=== PATIENT | male | born 1955 ===

== ENCOUNTER 2016-10-20 13:44 | Observation (INO) | payer OTHER ==
--- NOTE | 2016-10-20 15:36 | CT REPORT ---
HISTORY: Pain COMPARISON: None. TECHNIQUE: This examination was performed using automated exposure control, adjustment of mA or kV according to patient size, and/or use of iterative reconstruction technique. Axial noncontrast images of the sinus es obtained with multiplanar reformat images. FINDINGS: The frontal, ethmoids, sphenoid, and maxillary sinuses are clear, except for very minimal mucosal thi ckening in the inferior left sphenoid sinuses. No air-fluid levels. The ostia and infundibular region s are patent. There is moderate septal bowing pointing to the left, along with a small septal spur. N o contact point. The nasal cavity is otherwise normal. No bony sclerosis or thickening. The mastoid air cells are clear. Inferior aspect of the brain, soft tissues of the orbits and face are grossly normal. IMPRESSION: Very minimal mucosal thickening in the left sphenoid sinuses. No other sinus opacification, or air-fl uid levels. Final Electronic Signature: This report was electronically signed by Greg Ingram MD on 10/20/2016 3 :34 PM. jenny /
--- NOTE | 2016-10-20 15:41 | CT REPORT ---
HISTORY: Headache. COMPARISON: None available. TECHNIQUE: Axial non-contrast images obtained from skull vertex through foramen magnum. Dose reduction technique was utilized. FINDINGS: No intracranial mass. No intracranial hemorrhage. No extra-axial fluid collection. Normal ventricular size. No midline shift. No definite evidence for acute or evolving stroke. No calvarial fracture. Visualized paranasal sinuses and mastoid air cells are clear. IMPRESSION: Unremarkable CT head. No evidence for mass, stroke or hemorrhage. Final Electronic Signature: This report was electronically signed by Anoop Huber MD, FACR on 3:39 PM. venu /
[2016-10-20 15:43] LABS: ALBUMIN 3.7 g/dL (3.5-5.0); ALKALINE PHOSPHATASE 52 U/L (38-126); ALT 79 U/L (21-72); AST 79 U/L (17-59); BILIRUBIN, TOTAL 1.6 mg/dL (0.2-1.3); BLOOD UREA NITROGEN 18 mg/dL (9-20); CALCIUM 8.7 mg/dL (8.4-10.2); CHLORIDE 95 mmol/L (98-107); CREATININE 0.7 mg/dL (0.7-1.3); EST GLOMERULAR FILTRATION RATE > 60 mL/min; GLUCOSE 112 mg/dL (70-100); POTASSIUM 4.1 mmol/L (3.5-5.1); SODIUM 127 mmol/L (137-145); TOTAL PROTEIN 7.3 g/dL (6.3-8.2)
--- NOTE | 2016-10-20 15:43 | RADIOLOGY REPORT ---
HISTORY: Cough and congestion. COMPARISON: None available. FINDINGS: 2 views of the chest obtained. Normal heart size. Mild atherosclerotic changes aorta. Grossly normal central pulmonary vessels. Patchy somewhat poorly defined left lower lobe infiltrate. Otherwise clear lungs. No pleural effusion. No pneumothorax. No focal bony abnormalities identified. IMPRESSION: Probable early or developing left lower lobe infiltrate compatible with the presence of pneumonia. In the appropriate clinical situation consider aspiration. Final Electronic Signature: This report was electronically signed by Anoop Huber MD, FACR on 3:41 PM. venu /
[2016-10-20 16:05] LABS: HEMATOCRIT 43.7 % (42.0-54.0); HEMOGLOBIN 15.6 g/dL (14.0-18.0); MEAN CELL VOLUME 87.9 fL (80.0-100.0); MEAN CORPUS. HGB CONCENTRATION 35.8 g/dL (32.0-36.0); MEAN CORPUSCULAR HEMOGLOBIN 31.5 pg (29.0-35.0); MEAN PLATELET VOLUME 8.8 fL (7.4-10.4); PLATELET COUNT 202 X 10^3uL (130-440); RED BLOOD COUNT 4.96 X 10^6uL (4.20-6.10); RED CELL DISTRIBUTION WIDTH 11.8 % (11.5-14.5); WHITE BLOOD COUNT 13.5 X 10^3uL (3.9-10.7)
[2016-10-20 16:07] LABS: BAND% (Manual) 18 % (0.0-1.0); LYMPHOCYTE % (Manual) 11 % (20.0-40.0); NEUTROPHIL % (Manual) 65 % (54.0-75.0)
[2016-10-20 16:08] LABS: METAMYELOCYTE % (Manual) 1 % (0); MONOCYTE % (Manual) 5 % (2.0-10.0); PLATELET ESTIMATE ADEQUATE; PROMYELOCYTE % (Manual) 1 % (0)
[2016-10-20] MEDS ORDERED: cefTRIAXone SODIUM 1,000 MG/10 ML VIAL ONE (16:35)
[2016-10-20] MEDS ORDERED: AZITHROMYCIN 250 MG TABLET PO ONE ×2 (16:35→16:40)
[2016-10-20] MEDS ORDERED: HOME MEDICATION LIST NEEDED 1 EA EACH MC ONE (16:37)
[2016-10-20] MEDS ORDERED: ZOLPIDEM TARTRATE 5 MG TABLET PO PRN (16:37)
[2016-10-20] MEDS ORDERED: ACETAMINOPHEN 325 MG TABLET PO PRN (16:37)
[2016-10-20] MEDS ORDERED: POLYETHYLENE GLYCOL 3350 17 GM POWD.PACK PO PRN (16:37)
[2016-10-20] MEDS ORDERED: NORMAL SALINE 100 ML IV ONE (16:50)
[2016-10-20] MEDS ORDERED: cefTRIAXone SODIUM 1,000 MG/10 ML VIAL IV SCH (17:00)
[2016-10-20] MEDS ORDERED: HOME MEDICATION LIST NEEDED 1 EA EACH MISC ONE (18:00)
--- NOTE | 2016-10-20 18:09 | ER PHYSICIAN DOCUMENTATION ---
Physician Documentation [facility] Name:Joseph Barajas Age:61 yrs Sex:Male :1955 Arrival Date:10/20/2016 Time:13:44 Bed2 Private MD: Beck Isaacs Disposition: 10/20 18:30 Chart complete. tl1 Disposition: 10/20/16 17:07 Admit ordered for Cori Garland. Preliminary diagnosis is Pneumonia Bacterial. - Bed requested for Medical/Surgical. - Condition is Good. - Problem is new. - Symptoms have improved. 23 HR OBS Yes HPI: 13:50 This 61 yrs old Unknown Male presents to ER with complaints of Sinus Pain, Sinus tl1 Congestion. 14:13 He is a rambling, non linear historian. He was well until about 2 weeks ago when he tl1 noted general malaise and fatigue. 4 days ago he noted sinus congestion and worsening malaise and myalgias. He saw Dr Fuentes 3 days ago at [facility] where a flu swab was negative, and he was thought to have a bacterial sinusitis, and treated with Amox, 875 BID. In addition, he has had a mildly productive cough with occasional small hemoptysis. Since then he is no better and has a worsening h/a that is bifrontal and over the vertex. He saw Dr Garland in clinic today and had a temp to 102 degrees, and seemed perhaps a little confused. He says his thinking is slow and foggy. Historical: - Allergies: No known drug Allergies; - Home Meds: 1. Amoxicillin Oral 2. gabapentin 300 mg oral cap 2 caps at bedtime 3. [place] 10-325 mg oral tab 4. prednisone 5 mg oral tab - PMHx: CHRONIC PAIN; polymyalgia rheumatica; - PSHx: None; - Tetanus: unknown. - Immunization history: Pneumococcal vaccine is up to date. - Ebola Screening: : Patient negative for fever greater than or equal to 101.5 degrees Fahrenheit, and additional compatible Ebola Virus Disease symptoms. Patient denies exposure to infectious person. Patient denies travel to an Ebola-affected area in the 21 days before illness onset. No symptoms or risks identified at this time. . - Social history: Smoking status: unknown if patient ever smoked tobacco. ROS: 16:00 Respiratory: Positive for cough, hemoptysis, shortness of breath. tl1 16:00 All other systems are negative. Exam: 16:00 Constitutional: This is a well developed, well nourished patient who is awake, alert, tl1 and in no acute distress. Head/Face: Normocephalic, atraumatic. Eyes: Pupils equal round and reactive to light, extra-ocular motions intact. Lids and lashes normal. Conjunctiva and sclera are non-icteric and not injected. Cornea within normal limits. Periorbital areas with no swelling, redness, or edema. ENT: Nares patent. No nasal discharge, no septal abnormalities noted. Tympanic membranes are normal and external auditory canals are clear. Oropharynx with no redness, swelling, or masses, exudates, or evidence of obstruction, uvula midline. Mucous membranes moist. 16:00 Cardiovascular: Regular rate and rhythm with a normal S1 and S2. No gallops, murmurs, tl1 or rubs. Normal PMI, no JVD. No pulse deficits. Abdomen/GI: Soft, non-tender, with normal bowel sounds. No distension or tympany. No guarding or rebound. No evidence of tenderness throughout. Skin: Warm, dry with normal turgor. Normal color with no rashes, no lesions, and no evidence of cellulitis. 16:00 Neuro: Awake and alert, GCS 15, oriented to person, place, time, and situation. Cranial nerves II-XII grossly intact. Motor strength 5/5 in all extremities. Sensory grossly intact. Cerebellar exam normal. Normal gait. 16:00 Respiratory: Respirations: normal, Breath sounds: are normal, no decreased breath sounds, no rales, rhonchi, no stridor, no wheezing. Vital Signs: 14:22 BP 155 / 84; Pulse 84; Resp 20; Temp 100.6; Pulse Ox 90% on R/A; Pain 4/10; rs 14:29 Pulse Ox 97% ; rs 14:30 BP 147 / 86 (auto/); rs 14:44 Pulse Ox 97% ; rs 14:45 BP 155 / 89 (auto/); rs 14:54 Pulse Ox 96% ; rs 15:00 BP 158 / 90 (auto/); rs 15:30 BP 149 / 82 (auto/); rs 15:34 Pulse Ox 94% ; rs 16:00 BP 154 / 88 (auto/); rs 16:04 Pulse Ox 95% ; rs MDM: 13:50 Patient medically screened. tl1 17:00 Differential Diagnosis: Bronchitis Influenza Upper Respiratory Infection Sinusitis tl1 Viral Syndrome Pneumonia. Data reviewed: vital signs, nurses notes, old medical records, lab test result(s), radiologic studies, and as a result, I will admit patient. Test interpretation: by ED physician or midlevel provider: plain radiologic studies. Counseling: I had a detailed discussion with the patient and/or guardian regarding: the historical points, exam findings, and any diagnostic results supporting the discharge/admit diagnosis, lab results, radiology results, the need for further work-up and treatment in the hospital. Response to treatment: the patient's symptoms have mildly improved after treatment, and as a result, I will admit patient. Physician consultation: Cori Garland MD was called at 16:30, was contacted at 16:30, regarding admission, to the floor, patient's condition, and will see patient in inpatient room, shortly. 10/20 16:06 Order name: CBC WITHOUT A DIFFERENTIAL [facility] 10/20 16:31 Interpretation: WHITE BLOOD COUNT 13.5; HEMOGLOBIN 15.6; HEMATOCRIT 43.7; PLATELET tl1 COUNT 202. 10/20 16:07 Order name: COMPREHENSIVE METABOLIC PANEL [facility] 10/20 16:31 Interpretation: SODIUM 127; POTASSIUM 4.1; CHLORIDE 95; CARBON DIOXIDE 24; GLUCOSE 112; tl1 BLOOD UREA NITROGEN 18; CREATININE 0.7; ALT 79; AST 79; BILIRUBIN, TOTAL 1.6. 10/20 16:07 Order name: MAGNESIUM [facility] 10/20 16:32 Interpretation: Normal: MAGNESIUM 2.0. tl1 10/20 16:09 Order name: MANUAL DIFFERENTIAL [facility] 10/20 16:32 Interpretation: NEUTROPHIL % (Manual) 65; BAND% (Manual) 18; LYMPHOCYTE % (Manual) 11; tl1 MONOCYTE % (Manual) 5; METAMYELOCYTE % (Manual) 1; PROMYELOCYTE % (Manual) 1. 10/20 15:20 Order name: CATSCAN;MAXILLOFAC W/O [id number] EDNM 10/20 15:20 Order name: CATSCANMAXILLOFAC W/O [id number]; Complete Time: 16:05 EDNM 10/20 15:22 Order name: CAT SCAN HEAD W/O CON [id number]; Complete Time: 16:05 EDMS 10/20 15:35 Order name: CXR 2V [id number]; Complete Time: 16:05 EDMS 10/20 15:39 Order name: CATSCAN;MAXILLOFAC W/O [id number]; Complete Time: 16:05 EDMS 10/20 15:42 Order name: CAT SCAN; HEAD W/O CON [id number]; Complete Time: 16:05 EDMS 10/20 15:44 Order name: CXR 2V [id number]; Complete Time: 16:05 EDMS 10/20 14:02 Order name: Pulse Ox Continuous; Complete Time: 16:12 tl1 10/20 16:15 Order name: Continuous Cardiac Monitoring tl1 10/20 16:15 Order name: Hemocult Stool tl1 10/20 16:15 Order name: I & O tl1 10/20 16:15 Order name: NPO tl1 10/20 16:15 Order name: Oxygen tl1 Dispensed Medications: Completed: NS 0.9% 1000 ml IV at bolus once Completed: 2 grams of (cefTRIAXone 1 grams, NS 0.9% 100 ml) IVPB once over 30 mins 15:40 Drug: NS 0.9% 1000 ml; Volume: 1000 ml; Route: IV; Rate: bolus; Site: right hand; rs Delivery: [place] [facility]; 16:30 Follow up: IV Status: Completed infusion; IV Intake: 1000ml rs 16:30 Dru grams of (cefTRIAXone 1 grams, NS 0.9% 100 ml); Volume: 100 ml; Route: IVPB; rs Rate: 200 ml/hr; Infused Over: 30 mins; Site: right hand; Delivery: [place] [facility]; 17:29 Follow up: IV Intake: 100ml rs 16:32 Drug: Zithromax 500 mg; Route: PO; rs 17:28 Follow up: Response: No adverse reaction rs 16:48 CANCELLED (Physician Discretion): cefTRIAXone 1 grams IM once rs 16:48 CANCELLED (Physician Discretion): cefTRIAXone 2 grams IM once rs 16:49 CANCELLED (Physician Discretion): Ceftazidime 2 grams IVPB once rs 16:56 Drug: Acetaminophen 975 mg; Route: PO; lpr Signatures: Sheri Mar RN RN rs Marlene Hilario RN RN lpr Leigh, Tom, MD MD tl1
--- NOTE | 2016-10-20 18:09 | ER NURSING DOCUMENTATION ---
Nurse's Notes [facility] Name:Joseph Barajas Age:61 yrs Sex:Male :1955 Arrival Date:10/20/2016 Time:13:44 Bed2 Private MD: Diagnosis:Pneumonia Bacterial Presentation: 10/20 13:59 Presenting complaint: Patient states: cough, fever, myalgias. Flu test done at [facility] 3 days ago was neg. Transition of care: Home. Notified ED Physician of patient's arrival and CC Dr. Dunbar notified. 13:59 Acuity: JOHN 3 rs 13:59 Method Of Arrival: Private Vehicle rs 17:17 Acuity: JOHN 2 lpr Triage Assessment: 14:09 General: Appears comfortable, well developed, well nourished, well groomed, Behavior is rs cooperative, pleasant. Pain: Complains of pain in [place] and myalgias. Neuro: No deficits noted. Level of Consciousness is awake, alert, Oriented to person, place, time, event. Cardiovascular: No deficits noted. Capillary refill < 3 seconds Pulses are 3+ in right radial artery. Respiratory: No deficits noted. Respiratory effort is even, unlabored, Respiratory pattern is regular, symmetrical, Breath sounds are clear bilaterally. GI: Abdomen is flat, non- distended Bowel sounds present X 4 quads. Derm: Skin is pink, warm & dry. Historical: - Allergies: No known drug Allergies; - Home Meds: 1. Amoxicillin Oral 2. gabapentin 300 mg oral cap 2 caps at bedtime 3. [place] 10-325 mg oral tab 4. prednisone 5 mg oral tab - PMHx: CHRONIC PAIN; polymyalgia rheumatica; - PSHx: None; - Tetanus: unknown. - Immunization history: Pneumococcal vaccine is up to date. - Ebola Screening: : Patient negative for fever greater than or equal to 101.5 degrees Fahrenheit, and additional compatible Ebola Virus Disease symptoms. Patient denies exposure to infectious person. Patient denies travel to an Ebola-affected area in the 21 days before illness onset. No symptoms or risks identified at this time. . - Social history: Smoking status: unknown if patient ever smoked tobacco. Screenin:31 Infectious Disease Risk None. Abuse screen: Denies threats or abuse. Nutritional rs screening: No deficits noted. Assessment: 14:23 See Triage Assessment done by same RN. rs 14:27 Reassessment: Pt states he did not want to be sent to the ER, that he just wanted a rs change in abx, He denies that he is confused at all, and does not want a CT done. notified. . Vital Signs: 14:22 BP 155 / 84; Pulse 84; Resp 20; Temp 100.6; Pulse Ox 90% on R/A; Pain 4/10; rs 14:29 Pulse Ox 97% ; rs 14:30 BP 147 / 86 (auto/); rs 14:44 Pulse Ox 97% ; rs 14:45 BP 155 / 89 (auto/); rs 14:54 Pulse Ox 96% ; rs 15:00 BP 158 / 90 (auto/); rs 15:30 BP 149 / 82 (auto/); rs 15:34 Pulse Ox 94% ; rs 16:00 BP 154 / 88 (auto/); rs 16:04 Pulse Ox 95% ; rs ED Course: 13:45 Patient arrived in ED. lm3 13:50 Beck Dunbar MD is Attending Physician. tl1 13:59 Sheri Mar, RN is Primary Nurse. rs 14:09 Triage completed. rs 14:15 Arm band placed on Bed in low position Call Light in Reach HOB Elevated Side rails up rs x1. 14:20 Notified ED Physician of patient's arrival and chief complaint. Dr. Dunbar notified. rs 14:20 Pulse Ox - RN Monitoring Only. Door closed. Noise minimized. Lights dimmed. Verbal rs reassurance given. 15:[address] pm1 15:11 Inserted peripheral IV: 20 gauge in right hand and blood collected. rs 15:[address] back from [address]. pm1 17:07 Cori Garland MD is Admitting Physician. tl1 Administered Medications: Completed: NS 0.9% 1000 ml IV at bolus once Completed: 2 grams of (cefTRIAXone 1 grams, NS 0.9% 100 ml) IVPB once over 30 mins 15:40 Drug: NS 0.9% 1000 ml; Volume: 1000 ml; Route: IV; Rate: bolus; Site: right hand; rs Delivery: [place] [facility]; 16:30 Follow up: IV Status: Completed infusion; IV Intake: 1000ml rs 16:30 Dru grams of (cefTRIAXone 1 grams, NS 0.9% 100 ml); Volume: 100 ml; Route: IVPB; rs Rate: 200 ml/hr; Infused Over: 30 mins; Site: right hand; Delivery: [place] [facility]; 17:29 Follow up: IV Intake: 100ml rs 16:32 Drug: Zithromax 500 mg; Route: PO; rs 17:28 Follow up: Response: No adverse reaction rs 16:48 CANCELLED (Physician Discretion): cefTRIAXone 1 grams IM once rs 16:48 CANCELLED (Physician Discretion): cefTRIAXone 2 grams IM once rs 16:49 CANCELLED (Physician Discretion): Ceftazidime 2 grams IVPB once rs 16:56 Drug: Acetaminophen 975 mg; Route: PO; lpr Intake: 16:30 IV: 1000ml; Total: 1000ml. rs 17:29 IV: 100ml; Total: 1100ml. rs Outcome: 17:07 Decision to Admit by Provider. tl1 17:45 Admitted to Med/surg accompanied by nurse, via wheelchair. rs 17:45 Condition: improved 17:45 Report given to Domi HAIDER 17:45 Instructed on need to admit 18:07 Patient left the ED. rs Signatures: Sheri Mar RN RN rs Marlene Hilario RN RN lpr Koko Walker pm1 Beck Dunbar MD MD tl1 Krista Lancaster 3
[2016-10-20] MEDS ORDERED: ONDANSETRON HCL 4 MG/2 ML VIAL IV PRN (18:30)
[2016-10-20] MEDS ORDERED: HYDROcodone/APAP 10/325 MG 1 TAB TABLET PO PRN (18:31)
[2016-10-20] MEDS ORDERED: ONDANSETRON ODT 4 MG TAB.RAPDIS PO ONE (18:40)
[2016-10-20] MEDS ORDERED: ONDANSETRON ODT 4 MG TAB.RAPDIS ONE (18:50)
[2016-10-20 19:01] LABS: INFLUENZA A/B INF A & B NEGATIVE
[2016-10-20] MEDS: FAMOTIDINE IN SALINE, ISO-OSM 20 MG/50 ML PIGGYBACK IV SCH (20:59)
[2016-10-20] MEDS: predniSONE 10 MG TABLET PO SCH (20:59)
[2016-10-21] MEDS: NORMAL SALINE 1,000 ML IV SCH ×3 (00:25→18:19)
--- NOTE | 2016-10-21 06:35 | HISTORY & PHYSICAL ---
DATE OF ADMISSION: 10/20/16 HISTORY OF PRESENT ILLNESS: The patient presented to our clinic today, 3 days after seeing his PCP for some fever and URI symptoms. It was felt that he probably had a sinus infection as the reason for his feeling poorly with fever and headache. The patient states he has not done well at all, if anything he is much worse. He can barely eat any food due to nausea and intermittent vomiting when he tries. He relates a rather intense headache which is so severe when he coughs that he sees flashing lights. He is not coughing excessively but does note some brown sputum when he does cough. He does not relate any abdominal pain. He really does not have significant sinus pain or congestion, and no purulent drainage from the [employer] region. He relates having intermittent fever, chills and shakes. Also of note, his PCP has been trying to taper him off of prednisone for his polymyalgia rheumatic, but did not seem successful with that so he is back up to 20 mg of prednisone p.o. daily. He is also quite distraught that he has not been able to sleep for 6 nights by his recollection. PAST MEDICAL HISTORY 1. The patient has a history of chronic pain involving his neck, back and some total body pain that is not well characterized, presumed PMR. 2. He has anxiety. 3. History of ulcerative colitis. ROUTINE MEDICATIONS: Include [place] 10/325 which he takes 1 p.o. q.6h p.r.n. Prednisone 20 mg p.o. daily. DRUG ALLERGIES: None. SOCIAL HISTORY: He quit smoking in 1993. He does not drink alcohol regularly. He has a and daughter and lives here in [place]. LABORATORY DATA: From the emergency room include CBC with a white count of 13.5 with 18% bands, 11% lymphocytes and some immature forms. Chemistry is remarkable for a sodium of 127, glucose of 112, total bilirubin of 1.6, AST 79, ALT 79. IMAGING: Reports include a chest x-ray which reveals a patchy left lower lobe infiltrate consistent with pneumonia. CT of the sinuses was unremarkable as was the CT of the head. PHYSICAL EXAMINATION VITAL SIGNS: The patient is presently afebrile, although he was 101.9 in our clinic earlier today when we decided to send him to the emergency room. His blood pressure is now 131/66, pulse 85, respiratory rate 18, and 92% on room air. GENERAL: He is a fatigued and perhaps mildly confused middle-aged gentleman in no acute distress. HEENT: Exam is completely unremarkable. CHEST: Reveals cardiac regular rate and rhythm with no murmurs. There is good air movement throughout. There is a rhonchus heard in the midleft chest. There is no egophony. ABDOMEN: Nontender throughout, event the right upper quadrant is not tender. EXTREMITIES: Without rashes or edema. ASSESSMENT AND PLAN 1. Six day history of febrile illness of unclear etiology. He was screened for influenza and this was negative in our clinic when he was seen on Sunday this week. His presentation is not classic for sinusitis and really not very classic for pneumonia, but we do have the abnormal chest x-ray, the CBC suggestive of a bacterial source of infection so he will be treated for community acquired pneumonia. 2. Hyponatremia. Certainly a sense of well being is impacted by a very abnormal sodium. He is receiving IV fluids and we will treat his nausea symptomatically hoping to restore a more normal sodium by morning and see his ability to take p.o. prior to discharge. 3. Severe headache. The imaging studies and history do not explain this very well, however, his los sodium and intermittent febrile status could easily explain a headache. 4. Possible polymyalgia rheumatica. His steroid will be continued in light of his present stressed state and he can follow up with Dr. Fuentes about this aspect of his health in the near future. 5. Chronic back pain. His narcotics will remain available to him during the hospital stay. ENMA
[2016-10-21 07:36] LABS: ALBUMIN 3.2 g/dL (3.5-5.0); ALKALINE PHOSPHATASE 43 U/L (38-126); ALT 83 U/L (21-72); AST 65 U/L (17-59); BILIRUBIN, DIRECT 0.4 mg/dL (0.0-0.4); BILIRUBIN, TOTAL 1.3 mg/dL (0.2-1.3); BLOOD UREA NITROGEN 15 mg/dL (9-20); CALCIUM 8.3 mg/dL (8.4-10.2); CHLORIDE 100 mmol/L (98-107); CREATININE 0.7 mg/dL (0.7-1.3); EST GLOMERULAR FILTRATION RATE > 60 mL/min; GLUCOSE 118 mg/dL (70-100); POTASSIUM 3.9 mmol/L (3.5-5.1); SODIUM 132 mmol/L (137-145); TOTAL PROTEIN 6.5 g/dL (6.3-8.2)
[2016-10-21 07:56] LABS: HEMATOCRIT 41.6 % (42.0-54.0); HEMOGLOBIN 14.5 g/dL (14.0-18.0); MEAN CELL VOLUME 88.5 fL (80.0-100.0); MEAN CORPUS. HGB CONCENTRATION 34.9 g/dL (32.0-36.0); MEAN CORPUSCULAR HEMOGLOBIN 30.9 pg (29.0-35.0); MEAN PLATELET VOLUME 8.5 fL (7.4-10.4); PLATELET COUNT 184 X 10^3uL (130-440); RED CELL DISTRIBUTION WIDTH 11.8 % (11.5-14.5)
[2016-10-21 07:57] LABS: BAND% (Manual) 20 % (0.0-1.0); EOSINOPHIL % (Manual) 1 % (0.0-6.0); LYMPHOCYTE % (Manual) 16 % (20.0-40.0); METAMYELOCYTE % (Manual) 2 % (0); MONOCYTE % (Manual) 12 % (2.0-10.0); NEUTROPHIL % (Manual) 49 % (54.0-75.0)
[2016-10-21 07:58] LABS: PLATELET ESTIMATE ADEQUATE
[2016-10-21] MEDS: FAMOTIDINE IN SALINE, ISO-OSM 20 MG/50 ML PIGGYBACK IV SCH ×2 (08:23→21:06)
[2016-10-21] MEDS: predniSONE 10 MG TABLET PO SCH ×2 (08:23→21:30)
--- NOTE | 2016-10-21 11:58 | PROGRESS NOTE: IM SOAP ---
IM: PN Subjective Cardiovascular: no chest pain Respiratory: cough, no wheeze Gastrointestinal: no nausea Neurological: headache (improving) IM: PN Objective Exam - I&O/Vital Signs I&O: Intake & Output 10/20/16 10/21/16 10/21/16 21:59 05:59 13:59 Intake Total 610 2642 Output Total 0 980 Balance 610 1662 Weight 105.914 kg Intake: IV 150 1642 Right Hand 150 Right Forearm 1642 Oral 460 1000 Output: Urine 0 980 Other: Urine Appearance Clear Clear Urine Color Dark Marilyn Dark Marilyn Stool Size Moderate Stool Characteristics Soft Voiding Method Toilet Toilet # Voids 0 5 # Bowel Movements 0 Vital Signs: Last Vital Signs Temp 37.2 C 10/21/16 11:00 Pulse 76 10/21/16 11:00 Resp 25 H 10/21/16 11:00 BP 137/68 10/21/16 11:00 Pulse Ox 93 10/21/16 11:00 Oxygen Flow Rate 1 Oxygen Delivery Method Nasal Cannula - Neck Neck exam: Present: full ROM - Respiratory Respiratory exam: Present: rales. Absent: rhonchi, wheezes Additional comments: L basilar - Cardiovascular Cardiovascular exam: Present: RRR. Absent: systolic murmur - GI/Abdominal GI/Abdominal exam: Present: soft. Absent: tenderness - Extremities Exam Extremities exam: Absent: edema - Lab Labs: Laboratory Last Values WBC 11.0 X 10^3uL (3.9-10.7) H 10/21/16 07:00 RBC 4.70 X 10^6uL (4.20-6.10) 10/21/16 07:00 Hgb 14.5 g/dL (14.0-18.0) 10/21/16 07:00 Hct 41.6 % (42.0-54.0) L 10/21/16 07:00 MCV 88.5 fL (80.0-100.0) 10/21/16 07:00 MCH 30.9 pg (29.0-35.0) 10/21/16 07:00 MCHC 34.9 g/dL (32.0-36.0) 10/21/16 07:00 RDW 11.8 % (11.5-14.5) 10/21/16 07:00 Plt Count 184 X 10^3uL (130-440) 10/21/16 07:00 MPV 8.5 fL (7.4-10.4) 10/21/16 07:00 Total Counted 100 10/21/16 07:00 Neutrophils % Cancelled 10/20/16 14:10 Neutrophils % (Manual) 49 % (54.0-75.0) L 10/21/16 07:00 Band Neuts % (Manual) 20 % (0.0-1.0) H 10/21/16 07:00 Lymphocytes % Cancelled 10/20/16 14:10 Lymphocytes % (Manual) 16 % (20.0-40.0) L 10/21/16 07:00 Monocytes % (Manual) 12 % (2.0-10.0) H 10/21/16 07:00 Eosinophils % Cancelled 10/20/16 14:10 Eosinophils % (Manual) 1 % (0.0-6.0) 10/21/16 07:00 Basophils % Cancelled 10/20/16 14:10 Metamyelocytes % (Man) 2 % (0) H 10/21/16 07:00 Promyelocytes % (Man) 1 % (0) H 10/20/16 14:10 Neutrophils # Cancelled 10/20/16 14:10 Lymphocytes # Cancelled 10/20/16 14:10 Monocytes Cancelled 10/20/16 14:10 Monocytes # Cancelled 10/20/16 14:10 Eosinophils # Cancelled 10/20/16 14:10 Basophils # Cancelled 10/20/16 14:10 Platelet Estimate Adequate 10/21/16 07:00 Sodium 132 mmol/L (137-145) L 10/21/16 07:00 Potassium 3.9 mmol/L (3.5-5.1) 10/21/16 07:00 Chloride 100 mmol/L (98-107) 10/21/16 07:00 Carbon Dioxide 25 mmol/L (22-30) 10/21/16 07:00 BUN 15 mg/dL (9-20) 10/21/16 07:00 Creatinine 0.7 mg/dL (0.7-1.3) 10/21/16 07:00 GFR Calculation > 60 mL/min 10/21/16 07:00 Glucose 118 mg/dL (70-100) H 10/21/16 07:00 Calcium 8.3 mg/dL (8.4-10.2) L 10/21/16 07:00 Magnesium 2.0 mg/dL (1.6-2.3) 10/20/16 14:10 Total Bilirubin 1.3 mg/dL (0.2-1.3) 10/21/16 07:00 Direct Bilirubin 0.4 mg/dL (0.0-0.4) 10/21/16 07:00 AST 65 U/L (17-59) H 10/21/16 07:00 ALT 83 U/L (21-72) H 10/21/16 07:00 Alkaline Phosphatase 43 U/L (38-126) 10/21/16 07:00 Total Protein 6.5 g/dL (6.3-8.2) 10/21/16 07:00 Albumin 3.2 g/dL (3.5-5.0) L 10/21/16 07:00 Albumin/Globulin Ratio 1.0 10/20/16 14:10 Influenza Types A,B Ag Inf a & b negative 10/20/16 14:10 Assessment and Plan - Date of Encounter Date of Encounter: 10/21/16 (1) LLL pneumonia Status: Acute Assessment and plan: Currently on RA. Marked left shift. Clinically improving. Cherelle Cannon Current Visit: Yes (2) Hyponatremia Status: Acute Assessment and plan: Improving Current Visit: Yes (3) Headache Status: Acute Assessment and plan: Improving Current Visit: Yes (4) PMR (polymyalgia rheumatica) Status: Acute Assessment and plan: Prednisone Current Visit: Yes - Time Spent With Patient Total time spent with greater than 50% in coordination of care (as documented) at patient's floor/unit and/or counseling patient: Quality Questions - VTE Prophylaxis Assessment VTE Present on Admission?: No Patient at risk for venous thromboembolism?: No VTE Risk Level: Very Low Risk Pharmaceutical VTE prophylaxis contraindication reason: not indicated Mechanical VTE prophylaxis contraindication reason: not indicated
[2016-10-21] MEDS: GUAIFENESIN ER 600 MG TABLET PO SCH (14:23)
[2016-10-21] MEDS ORDERED: NORMAL SALINE 100 ML IV ONE (15:47)
[2016-10-21] MEDS ORDERED: cefTRIAXone SODIUM 1,000 MG/10 ML VIAL IV SCH (16:00)
[2016-10-21 23:35] VITALS: PULSE 60
[2016-10-22] MEDS: GUAIFENESIN ER 600 MG TABLET PO SCH (00:53)
[2016-10-22 06:33] VITALS: BP 108/62; RESP 20; TEMP 97.2
[2016-10-22 06:59] LABS: HEMATOCRIT 38.3 % (42.0-54.0); HEMOGLOBIN 13.5 g/dL (14.0-18.0); MEAN CELL VOLUME 88.1 fL (80.0-100.0); MEAN CORPUS. HGB CONCENTRATION 35.2 g/dL (32.0-36.0); MEAN PLATELET VOLUME 8.5 fL (7.4-10.4); PLATELET COUNT 178 X 10^3uL (130-440); RED BLOOD COUNT 4.35 X 10^6uL (4.20-6.10); WHITE BLOOD COUNT 9.4 X 10^3uL (3.9-10.7)
[2016-10-22 07:13] LABS: BLOOD UREA NITROGEN 13 mg/dL (9-20); CALCIUM 8.2 mg/dL (8.4-10.2); CHLORIDE 104 mmol/L (98-107); CREATININE 0.6 mg/dL (0.7-1.3); EST GLOMERULAR FILTRATION RATE > 60 mL/min; GLUCOSE 108 mg/dL (70-100); POTASSIUM 4.5 mmol/L (3.5-5.1); SODIUM 135 mmol/L (137-145)
[2016-10-22 07:33] LABS: NEUTROPHIL % (Manual) 43 % (54.0-75.0)
[2016-10-22 07:34] LABS: BAND% (Manual) 22 % (0.0-1.0); LYMPHOCYTE % (Manual) 21 % (20.0-40.0); MONOCYTE % (Manual) 14 % (2.0-10.0)
[2016-10-22 07:35] LABS: PLATELET ESTIMATE ADEQUATE
[2016-10-22] MEDS: NORMAL SALINE 1,000 ML IV SCH (07:36)
[2016-10-22 08:02] VITALS: O2SAT 94
[2016-10-22] MEDS: FAMOTIDINE IN SALINE, ISO-OSM 20 MG/50 ML PIGGYBACK IV SCH (08:57)
[2016-10-22] MEDS: predniSONE 10 MG TABLET PO SCH (08:57)
--- NOTE | 2016-10-22 10:22 | PROGRESS NOTE: IM SOAP ---
IM: PN Subjective Interval history: Over all feels dramatically better Cardiovascular: no chest pain Respiratory: cough (improving), no wheeze Gastrointestinal: no nausea Neurological: no headache IM: PN Objective Exam - I&O/Vital Signs I&O: Intake & Output 10/21/16 10/22/16 10/22/16 21:59 05:59 13:59 Intake Total 3976 2610 Output Total 550 650 Balance 3426 1960 Intake: IV 3076 1610 Right Hand 1610 Left Hand 3076 Oral 900 1000 Output: Urine 550 650 Other: Urine Appearance Clear Clear Clear Urine Color Light Marilyn Yellow Yellow Stool Size Moderate Copious Copious Stool Characteristics Soft Soft Soft Green Green Voiding Method Urinal Toilet Toilet # Voids 4 3 # Bowel Movements 1 0 Vital Signs: Last Vital Signs Temp 36.2 C L 10/22/16 06:32 Pulse 60 10/22/16 06:32 Resp 20 10/22/16 08:00 BP 108/62 10/22/16 06:32 Pulse Ox 94 10/22/16 08:00 Oxygen Flow Rate 0 Oxygen Delivery Method Room Air - Neck Neck exam: Present: full ROM - Respiratory Respiratory exam: Absent: rales, rhonchi, wheezes - Cardiovascular Cardiovascular exam: Present: RRR. Absent: systolic murmur - GI/Abdominal GI/Abdominal exam: Present: soft. Absent: tenderness - Extremities Exam Extremities exam: Absent: edema - Lab Labs: Laboratory Last Values WBC 9.4 X 10^3uL (3.9-10.7) 10/22/16 06:20 RBC 4.35 X 10^6uL (4.20-6.10) 10/22/16 06:20 Hgb 13.5 g/dL (14.0-18.0) L 10/22/16 06:20 Hct 38.3 % (42.0-54.0) L 10/22/16 06:20 MCV 88.1 fL (80.0-100.0) 10/22/16 06:20 MCH 31.0 pg (29.0-35.0) 10/22/16 06:20 MCHC 35.2 g/dL (32.0-36.0) 10/22/16 06:20 RDW 12.0 % (11.5-14.5) 10/22/16 06:20 Plt Count 178 X 10^3uL (130-440) 10/22/16 06:20 MPV 8.5 fL (7.4-10.4) 10/22/16 06:20 Total Counted 100 10/22/16 06:20 Neutrophils % Cancelled 10/20/16 14:10 Neutrophils % (Manual) 43 % (54.0-75.0) L 10/22/16 06:20 Band Neuts % (Manual) 22 % (0.0-1.0) H 10/22/16 06:20 Lymphocytes % Cancelled 10/20/16 14:10 Lymphocytes % (Manual) 21 % (20.0-40.0) 10/22/16 06:20 Monocytes % (Manual) 14 % (2.0-10.0) H 10/22/16 06:20 Eosinophils % Cancelled 10/20/16 14:10 Eosinophils % (Manual) 1 % (0.0-6.0) 10/21/16 07:00 Basophils % Cancelled 10/20/16 14:10 Metamyelocytes % (Man) 2 % (0) H 10/21/16 07:00 Promyelocytes % (Man) 1 % (0) H 10/20/16 14:10 Neutrophils # Cancelled 10/20/16 14:10 Lymphocytes # Cancelled 10/20/16 14:10 Monocytes Cancelled 10/20/16 14:10 Monocytes # Cancelled 10/20/16 14:10 Eosinophils # Cancelled 10/20/16 14:10 Basophils # Cancelled 10/20/16 14:10 Platelet Estimate Adequate 10/22/16 06:20 Sodium 135 mmol/L (137-145) L 10/22/16 06:20 Potassium 4.5 mmol/L (3.5-5.1) 10/22/16 06:20 Chloride 104 mmol/L (98-107) 10/22/16 06:20 Carbon Dioxide 26 mmol/L (22-30) 10/22/16 06:20 BUN 13 mg/dL (9-20) 10/22/16 06:20 Creatinine 0.6 mg/dL (0.7-1.3) L 10/22/16 06:20 GFR Calculation > 60 mL/min 10/22/16 06:20 Glucose 108 mg/dL (70-100) H 10/22/16 06:20 Calcium 8.2 mg/dL (8.4-10.2) L 10/22/16 06:20 Magnesium 2.0 mg/dL (1.6-2.3) 10/20/16 14:10 Total Bilirubin 1.3 mg/dL (0.2-1.3) 10/21/16 07:00 Direct Bilirubin 0.4 mg/dL (0.0-0.4) 10/21/16 07:00 AST 65 U/L (17-59) H 10/21/16 07:00 ALT 83 U/L (21-72) H 10/21/16 07:00 Alkaline Phosphatase 43 U/L (38-126) 10/21/16 07:00 Total Protein 6.5 g/dL (6.3-8.2) 10/21/16 07:00 Albumin 3.2 g/dL (3.5-5.0) L 10/21/16 07:00 Albumin/Globulin Ratio 1.0 10/20/16 14:10 Influenza Types A,B Ag Inf a & b negative 10/20/16 14:10 Assessment and Plan - Date of Encounter Date of Encounter: 10/22/16 (1) LLL pneumonia Status: Acute Assessment and plan: Currently on RA. Marked left shift. Clinically improving. Rocephin - will receive third dose prior to discharge, Cherelle D/C home today on Levaquin Current Visit: Yes (2) Hyponatremia Status: Acute Assessment and plan: Resolved Current Visit: Yes (3) Headache Status: Resolved Current Visit: Yes (4) PMR (polymyalgia rheumatica) Status: Acute Assessment and plan: Prednisone Current Visit: Yes - Time Spent With Patient Total time spent with greater than 50% in coordination of care (as documented) at patient's floor/unit and/or counseling patient:
[2016-10-22] MEDS ORDERED: NORMAL SALINE ADDVANTAGE 100 ML IV ONE (10:33)
[2016-10-22] MEDS ORDERED: NORMAL SALINE MINI-BAG+ 100 ML IV ONE (10:33)
[2016-10-22] MEDS ORDERED: cefTRIAXone SODIUM 1,000 MG in NORMAL SALINE MINI-BAG+ 100 ML IV SCH (16:00)
== END 2016-10-22 11:25 | disposition home or self-care (01) ==
LOC: ER 13:44 → IN 17:19
PROVIDERS: ADMIT Family Medicine; ATTEND Family Medicine
DX: J18.8 Other pneumonia, unspecified organism (principal); R50.9 Fever, unspecified; E87.1 Hypo-osmolality and hyponatremia; G44.89 Other headache syndrome; M54.2 Cervicalgia; G89.29 Other chronic pain; F41.9 Anxiety disorder, unspecified; M35.3 Polymyalgia rheumatica
CPT/HCPCS: 36415; 70450; 70486; 71020; 80048; 80053; 80076; 83735; 85007; 85027; 87449; 96361; 96366; 96367; 96374; 99285; G0378; J0696; J7030; J7512; Q0144